=== PATIENT | male | born 2000 | race Caucasian/White ===

== ENCOUNTER → 2024-12-28 | Outpatient (CLI) | payer OTHER, SELFPAY ==
--- NOTE | 2024-12-28 14:18 | VDLE_ITS ---
Reason For Study Reason For Study: LLE Swelling RIGHT LEFT CFV is compressible, spontaneous, phasic, competent CFV is compressible, phasic, and INCOMPETENT for and demonstrates normal augmentation. greater than 1.0 second. Procedure FV is compressible, spontaneous, phasic, competent This is a venous duplex using B-mode, color flow and and demonstrates normal augmentation. spectral Doppler. POP V is compressible, spontaneous, phasic, competent Exam performed in department. and demonstrates normal augmentation. The exam was diagnostic. T/P Trunk is compressible. Patient was scanned in reverse Trendelenburg position PTV is compressible. during reflux assessment. LT PerV is compressible. SFJ is INCOMPETENT and measures 0.64 cm. GSV proximal thigh measures 0.57 x 0.64 cm. GSV at knee measures 0.26 x 0.27 cm. GSV INCOMPETENT throughout for greater than 0.5 seconds. SSV at junction is competent and measures 0.35 cm. SSV mid calf is competent and measures 0.24 x 0.24 cm. ASV mid thigh is INCOMPETENT for greater than 0.5 seconds and measures 1.31 x 2.27 cm. ASV at knee is INCOMPETENT for greater than 0.5 seconds and measures 0.61 x 0.69 cm. Perforating Vessel mid calf 15cm distal to knee is INCOMPETENT for greater than 0.5 seconds and measures 0.43 cm. Perforating Vessel distal calf 10cm prox to medial mallelolus is INCOMPETENT for greater than 0.35 seconds and measures 0.33 cm. Perforating Vessel distal calf 5cm prox to medial mallelolus is INCOMPETENT for greater than 0.5 seconds and measures 0.32 cm. ASV bifurcates from GSV at prox/mid thigh ad rejoins the vessel at prox calf. VL/Venous Duplex US, Unilateral Interpretation Summary Deep veins of the left lower extremity are patent and compressible segmentally. There is no evidence of left lower extremity deep vein thrombosis. The left great saphenous vein appears patent an d compressible segmentally. Positive for reflux in the left common femoral vein, saphenofemoral junction, g reat saphenous vein throughout, accessory saphenous veins in thigh/at knee, shoe planner veins in calf Ordering Physician: Nia Simpson Referring Physician: Lisa Mauro Performed By: Zurdo Marroquin RVT
== END | disposition home or self-care (01) ==
LOC: CVS 14:17
PROVIDERS: PCP Family Medicine; Referring Provider Physician Assistant; Visit Provider Physician Assistant
DX: I87.2 Venous insufficiency (chronic) (peripheral) (principal); I83.028 Varicose veins of left lower extremity with ulcer other part of lower leg; L97.929 Non-pressure chronic ulcer of unspecified part of left lower leg with unspecified severity
CPT/HCPCS: 93971